=== PATIENT | male | born 1980 | race Caucasian/White ===

== ENCOUNTER 2021-04-30 15:59 | Emergency (ER) | payer BC | END 2021-04-30 17:37 | disposition short-term general hospital (02) | LOC: ER1 15:59 | DX: S62.621B Displaced fracture of middle phalanx of left index finger, initial encounter for open fracture (principal); Z23 Encounter for immunization; W34.00XA Accidental discharge from unspecified firearms or gun, initial encounter | CPT/HCPCS: 73130; 90471; 90715; 96374; 99284; J0690 ==